=== PATIENT | female | born 1965 | race Two or more races ===

== ENCOUNTER 2022-01-17 17:18 | Emergency (ER) | payer BC, OTHER ==
[~2022-01-17] VITALS: Ht 172.7 cm; Wt 74.8 kg
--- NOTE | 2022-01-17 17:40 | NUR ---
REceved pt 56 yrs female came from home for low potyasume levle 2.4
--- NOTE | 2022-01-17 18:00 | NUR ---
blood drow by lab tach at bed side
[2022-01-17 18:57] LABS: CALCIUM, SERUM 9.6 mg/dL (8.5-10.1); CREATININE 0.9 mg/dL (0.6-1.3); MAGNESIUM 1.8 mg/dL (1.8-2.4)
[2022-01-17 19:05] LABS: POTASSIUM 2.3 mmol/L (3.5-5.1)
--- NOTE | 2022-01-17 19:15 | NUR ---
HAND OFF OTIS HERNÁNDEZ
[2022-01-17] MEDS ORDERED: MAGNESIUM OXIDE 400 MG TABLET PO ONE (19:30)
[2022-01-17] MEDS ORDERED: POTASSIUM CHLORIDE 20 MEQ TAB.PRT.SR PO ONE ×2 (19:30→19:49)
[2022-01-17] MEDS ORDERED: MAGNESIUM OXIDE 400 MG TABLET ONE (19:49)
[2022-01-17] MEDS ORDERED: MAGN400T8 PO (19:51)
[2022-01-17] MEDS ORDERED: POTA20TA83 PO (19:51)
[2022-01-17 20:04] LABS: BASOPHILS # (AUTO) 0.1 K/uL (0.0-0.2); BASOPHILS % (AUTO) 0.8 % (0.0-2.0); EOSINOPHILS % (AUTO) 4.9 % (0.0-6.0); HEMATOCRIT 38 % (33-45); HEMOGLOBIN 12.9 g/dL (11.5-14.8); LYMPHOCYTES % (AUTO) 35.4 % (20.0-44.0); MEAN CORPUSCULAR HGB CONC 34 g/dl (31.0-36.0); MEAN CORPUSCULAR VOLUME 91 fL (82-100); MONOCYTES # (AUTO) 0.7 K/uL (0.1-1.30); MONOCYTES % (AUTO) 8.8 % (2.0-12.0); NEUTROPHILS # (AUTO) 4.2 K/uL (1.8-8.9); NEUTROPHILS % (AUTO) 50.1 % (43.0-81.0); PLATELET COUNT (AUTO) 246 K/uL (150-450); RED BLOOD CELL COUNT(AUTO) 4.19 MIL/uL (4.0-5.2); WHITE BLOOD COUNT (AUTO) 8.4 K/uL (4.3-11.0)
--- NOTE | 2022-01-17 20:27 | NUR ---
Patient discharged to home in stable condition.RX Written and verbal after care instructions given. Patient verbalizes understanding of instruction. pt ambulatory with a steady gait
[2022-01-17 22:21] VITALS: BP 161/87
== END 2022-01-17 22:22 | disposition home or self-care (01) ==
LOC: ER 17:23
DX: E87.6 Hypokalemia (principal); E83.42 Hypomagnesemia; Z79.899 Other long term (current) drug therapy
CPT/HCPCS: 36415; 80048-TC; 83735-TC; 85025-TC